=== PATIENT | female | born 1990 | race Caucasian/White ===

== ENCOUNTER 2018-02-17 22:19 | Emergency (ER) | payer OTHER ==
--- NOTE | 2018-02-17 23:06 | EDPHY ---
General - History Smoking Status: Never smoked Time Seen by Provider: 02/17/18 22:38 Narrative: CHIEF COMPLAINT: Head injury HISTORY OF PRESENT ILLNESS: Patient presents with complaints of head injury while climbing. She says today around 3:00 p.m. She was repair lying down from a climb. Throat but stuck, and she has attempted to free the rope when a rock fell. She says the rock was approximately 5 in in diameter and struck her on the top right part of her helmet. She sustained damage to the Styrofoam portion of the helmet anteriorly. She did not lose consciousness. She does have a headache that is 2 /10 but has not worsened since time of injury. She has had no vomiting, visual disturbance, neck pain, neuro complaints. No difficulty ambulating. No injury otherwise. She is primarily concerned because she did have a fall 2 years ago with loss of consciousness and mandibular injury. No other associated complaints or modifying factors. REVIEW OF SYSTEMS: Ten systems reviewed and are negative unless otherwise noted in the HPI PCP: Dr. Margie Arora SPECIALISTS: None PAST MEDICAL HISTORY: Mandibular fracture PAST SURGICAL HISTORY: Mandibular repair SOCIAL HISTORY: Nonsmoker. 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 Well-developed well-nourished. Head: normocephalic, atraumatic. No Rizo sign. No raccoon eyes. No outward signs of trauma. Eyes: Pupils equal and round, no conjunctival pallor or injection. EOM symmetric ENT, Mouth: Mucous membranes moist Neck: Normal inspection, supple, non-tender Respiratory: No retractions or distress. Cardiovascular: Regular rate with good signs of perfusion distally. Back: Normal appearance. There is no midline tenderness, crepitus or deformity at any level. Range of motion is symmetric. Neurological: GCS 15. A&O, nonfocal, normal gait. No pronator drift. Normal [id number]. Normal mentation. Skin: Warm and dry, no rash no petechiae or purpura. No laceration or puncture. Extremities: Nontender, no pedal edema. Symmetric range of motion upper and lower extremities Psychiatric: Mood and affect normal DIFFERENTIAL DIAGNOSES: Including but not limited to concussion, closed-head injury, basilar skull fracture, skull fracture, epidural hematoma, subdural hematoma, subarachnoid hemorrhage MDM: 11:00 p.m. Closed head injury at 3:00 p.m. Today with normal neuro examination, mentation and without any outward signs of trauma. Using [place] CT head rules, there is no acute indication for CT scan of the head. Furthermore, I do not feel she clinically warrants this. We did discuss risks, benefits and alternatives, and she would not like to proceed with CT scan of the head. I do feel it is reasonable to be discharged home with ED precautions for headache, neck pain, visual disturbance, vomiting. She is 8 hr post trauma and is very well- appearing. She is fully ambulatory without difficulty. She will contact her primary care physician in the morning. She is comfortable this plan and discharged home stable condition. SUPERVISION: This patient was independently evaluated without direct involvement of or examination by the attending physician. (Eugene Montanez) PHYSICIAN DOCUMENTATION: The patient was evaluated and managed by the Physician [employer]. My co- signature indicates that I have reviewed this chart and I agree with the findings and plan of care as documented. I am the secondary supervising physician. (Blanca Wu) - Objective Vital Signs: Initial Vital Signs Temperature (C) 36.7 C 02/17/18 22:22 Heart Rate 97 02/17/18 22:22 Respiratory Rate 16 02/17/18 22:22 Blood Pressure 110/73 02/17/18 22:22 O2 Sat (%) 98 02/17/18 22:22 O2 Delivery Mode Room Air Allergies/Adverse Reactions: No Known Allergies Allergy (Unverified 02/17/18 22:24) Home Medications: Medication Instructions Recorded Birthcontrol 02/17/18 Departure - Departure Disposition: Home, Routine, Self-Care Clinical Impression: Blunt head trauma, Closed head injury Condition: Good Instructions: Head Injury (ED) Additional Instructions: 1. Contact primary care physician tomorrow morning 2. Return to emergency department for any worsening of headache, any neck pain or stiffness, fever, nausea, vomiting, visual disturbance, bruising around the eyes, bruising behind the ears, drainage from the ears or nose Referrals: Margie Arora MD [Primary Care Provider] - As per Instructions
[2018-02-17 23:11] VITALS: BP 120/68
== END 2018-02-17 23:12 | disposition home or self-care (01) ==
DX: S09.90XA Unspecified injury of head, initial encounter (principal); W20.8XXA Other cause of strike by thrown, projected or falling object, initial encounter; Y99.8 Other external cause status; Y93.31 Activity, mountain climbing, rock climbing and wall climbing

== ENCOUNTER → 2018-09-14 | Outpatient (CLI) | payer OTHER | LOC: BMCIMAGING 11:41 | PROVIDERS: ATTEND Internal Medicine | DX: M25.571 Pain in right ankle and joints of right foot (principal) ==